=== PATIENT | female | born 1970 | race Caucasian/White ===

== ENCOUNTER 2018-09-16 16:30 | Outpatient (CLI) | payer OTHER, SELFPAY ==
--- NOTE | 2018-09-16 14:40 | DI.RAD_ITS ---
SYMPTOM/DIAGNOSIS: HIP PAIN, HEARD A POP, M25.559 RIGHT HIP AND PELVIS: The hip joint spaces are well maintained. There is no significant acetabular spurring. The femoral heads and acetabula are normally formed. The SI joints and pubic symphysis are unremarkable. Stones are noted at the lower pole of the left kidney which is partially included on the exam. IMPRESSION: Negative pelvis and right hip.
== END 2018-09-16 16:50 ==
PROVIDERS: PCP Family Medicine; Visit Provider Family Medicine
DX: M25.551 Pain in right hip (principal)
CPT/HCPCS: 73502

== ENCOUNTER 2019-06-05 01:51 | Outpatient (CLI) | payer OTHER, SELFPAY ==
[2019-06-05 12:40] LABS: C-Reactive Protein 0.17 mg/dL (0.0-0.3); TSH (W/Ref FT4) 2.27 uIU/mL (0.36-3.74)
[2019-06-05 13:43] LABS: ESR 10 mm/hr (0-20)
[2019-06-06 09:21] LABS: Cyclic Citrullinated Peptide <2.5 U/mL (<5.0)
[2019-06-06 11:01] LABS: Rheumatoid Factor 9 IU/mL (<12.5)
[2019-06-06 14:09] LABS: ANA Interpretation Positive (NEGAT); ANA Titer Pattern SEE COMMENTS
[2019-06-11 14:34] LABS: HLA-B27 Result Positive
== END 2019-06-05 02:11 ==
PROVIDERS: PCP Family Medicine; Visit Provider Family Medicine
DX: L40.9 Psoriasis, unspecified (principal); M25.50 Pain in unspecified joint; R53.83 Other fatigue
CPT/HCPCS: 36415; 85652; 86200; 86812; 84443; 86038; 86140; 86431

== ENCOUNTER 2019-11-24 12:17 | Outpatient (CLI) | payer OTHER, SELFPAY ==
--- NOTE | 2019-11-24 13:00 | DI.RAD_ITS ---
EXAM: XR SHOULDER RT COMPLETE 2+V CLINICAL HISTORY: RIGHT SHOULDER PAIN, M25.519. TECHNIQUE: 2D digital imaging was performed. COMPARISON: No exams were available for comparison FINDINGS: BONES: No acute fracture is present. No bony destructive lesion is seen. JOINTS: No dislocation present. SOFT TISSUE: Normal. IMPRESSION: No acute abnormality. DATA REPOSITORY: RADIATION DOSE DELIVERED:
== END 2019-11-24 12:37 ==
PROVIDERS: PCP Family Medicine; Visit Provider Family Medicine
DX: M25.511 Pain in right shoulder (principal)
CPT/HCPCS: 73030

== ENCOUNTER 2019-12-12 03:11 | Outpatient (CLI) | payer OTHER, SELFPAY ==
--- NOTE | 2019-12-12 07:45 | DI.MRI_ITS ---
EXAM: MR UPPER JOINT RT WO CLINICAL HISTORY: STABILITY, ROTATOR CUFF TEAR, FAILED CONSERVATIVE TREATMENT, M75.100, M25.319. TECHNIQUE: Multiplanar multisequence MRI was performed. COMPARISON: None. FINDINGS: BONES: There is no fracture or contusion pattern. JOINTS: There are mild degenerative changes in the acromioclavicular joint. The glenohumeral joint i s normal. Mild degenerative signal changes are also noted in the greater tuberosity. TENDONS: Supraspinatus: There is a full-thickness tear of the supraspinatus tendon anteriorly. There is thick ening and intermediate signal within the tendon consistent with tendinosis. Infraspinatus: There is tendinosis of the infraspinatus tendon. Subscapularis: Thickening and intermediate signal seen within the subscapularis tendon consistent wit h tendinosis. Teres Minor: Unremarkable. Biceps and [place]: Unremarkable. MUSCLES: Unremarkable. GLENOID LABRUM: Unremarkable on this noncontrast examination. SOFT TISSUES: Unremarkable. LIGAMENTS: Unremarkable. OTHER: There is fluid seen in the subacromial-subdeltoid bursa. There is fluid seen in the subcoraco id bursa. IMPRESSION: 1. There is a full-thickness tear of the supraspinatus tendon at its insertion onto the greater tuber osity. 2. Tendinosis of the infraspinatus and subscapularis tendons. 3. Fluid in the subacromial-subdeltoid and subcoracoid bursa. 4. Degenerative changes seen in the shoulder. DATA REPOSITORY:
== END 2019-12-12 03:31 ==
PROVIDERS: PCP Family Medicine; Visit Provider Family Medicine
DX: M25.511 Pain in right shoulder (principal); M25.311 Other instability, right shoulder; M75.101 Unspecified rotator cuff tear or rupture of right shoulder, not specified as traumatic; M19.011 Primary osteoarthritis, right shoulder; M75.51 Bursitis of right shoulder
CPT/HCPCS: 73221

== ENCOUNTER 2020-02-09 08:39 | Outpatient (CLI) | payer OTHER, SELFPAY ==
[2020-02-10 13:05] LABS: COVID-19 RT-PCR UVMMC Result Negative (Negative)
== END 2020-02-09 08:59 ==
PROVIDERS: PCP Family Medicine; Visit Provider Student in an Organized Health Care Education/Training Program
DX: Z11.59 Encounter for screening for other viral diseases (principal)
CPT/HCPCS: U0003

== ENCOUNTER 2020-02-12 06:02 | Day surgery (SDC) | payer OTHER, SELFPAY ==
[2020-02-12] VITALS (9 sets, daily range): BP systolic 92–139; BP diastolic 44–89; PULSE 75–91; RESP 16–20; TEMP 36.3–36.5; O2SAT 95–99
[2020-02-12] MEDS: Lactated Ringers 1,000 ML 100 ML IV (06:44)
--- NOTE | 2020-02-12 07:37 | ROE_ITS ---
Date of service: 02/12/20 Time of Service: 11:55 Operative Note Operative Note DATE OF PROCEDURE: 02/12/20 PRE-OP DIAGNOSIS: Right: 1. Rotator cuff tear 2. LHB tendinopathy 3. Bursitis 4. Impingement 5. Adhesive capsulitis POST-OP DIAGNOSIS: same PROCEDURE: Right: 1. Rotator cuff repair, CPT# 58689. This involved repair of the subscapularis and supraspinatus using anchors and sutures to reattach the rotator cuff back to the footprint of the lesser and greater tuberosity. 2. Open biceps tenodesis, CPT# 25910. This involved reattaching the long head of the biceps tendon to the proximal humerus in the sub-pectoral area of the bicipital groove at the correct tension. 3. Extensive debridement, CPT# 83375. This involved using arthroscopic hand instruments, power instruments, and radiofrequency instruments to perform to release the long head of the biceps tendon from the superior labrum and debrided areas of labral tearing, synovitis, and thickening of the MGHL within the leta ohumeral joint anteriorly and posteriorly as well as debride partial articular sided infraspinatus rotator cuff tear superiorly. 4. Subacromial decompression with partial acromioplasty, CPT# 77057. This involved using arthroscopic power instruments and a radiofrequency wand to complete a bursectomy and remove bone spurs on the undersurface of the acromion. 5. Manipulation under anesthesia, CPT# 68070. This involved gentle steady pressure using the arm as a fulcrum while stabilizing the scapula to restore loss of forward flexion and improve motion from 135 degrees to past 155 degrees after induction of anesthesia and prior to the arthroscopy. The assistant superintendent for curriculum was medically required in order to help assist in techniques above, which require positioning the arm, holding the arthroscope, and m anipulating 2 to 4 instruments and sutures at the same time. This cannot be done without the help of an experienced assistant superintendent for curriculum. SURGEON: Kike Bianchi CERTIFIED DRUG COUNSELOR: Cintia Uribe ANESTHESIA: GETA and regional ESTIMATED BLOOD LOSS: 15 PATHOLOGY: none sent COMPLICATIONS: None Patient was transported to: PACU Patient's condition: stable Implants: Arthrex: 4.75mm SwiveLocks x 6 and Unicortical Proximal Biceps Tenodesis Button Indications: The patient was diagnosed with the above conditions and appropriately indicated for surgical intervention. Please see complete medical record for details. Findings: Exam under anesthesia: Supine forward flexion with scapula stabilized limited to 135 degrees. Gentle manipulation with gradual release easily able to restore full forward flexion symmetrical with the other side to 155 degrees. Full, symmetrical FF, internal rotation, and external rotation after this manipulation. Glenohumeral joint: Extensive, impressive synovitis anteriorly and superiorly about a anterior and superior labral tear and fraying. Thickened MGHL. Moderate partial upper border subscapularis tear with adjacent chondromalacia. Significant long head of the biceps injection inflammation. Anterior supraspinatus full-thickness rotator cuff tear with partial-thickness component in the posterior aspect and only a mild less than 10% articular partial tear of the infraspinatus. Thickened and inflamed inferior capsule with slight loss of axillary pouch volume. Subacromial space: Moderate bursitis. Moderate under surface acromial bone spur. Moderately sized full-thickness anterior supraspinatus tear. Procedure Description: The patient was taken to the operating room and transferred to the operating room table. General anesthesia was induced. While under anesthesia, bilateral shoulders were examined. The patient was found to have a significant loss of forward flexion while supine with the scapula stabilized that was corrected with a gentle manipulation under anesthesia restoring full range of motion symmetrically as detailed above. The patient was positioned in the beachchair position. All bony prominences were well-padded. Preoperative antibiotics were administered. The shoulder was prepped and draped in the usual sterile fashion. The correct patient, procedure, and side of the procedure were all verified prior to incision. Starting through the posterior portal a standard complete diagnostic arthroscopy was performed of the glenohumeral joint including inspection of the long head of the biceps, anterior and superior labrum, subscapularis tendon, supraspinatus and infraspinatus tendons, and axillary recess. The glenoid and humeral head cartilage as well as the posterior labrum were inspected from an anterior viewing portal. Significant findings and interventions noted above. The biceps tendon was released from the labrum using arthroscopic scissors. The subscapularis was torn off of the lesser tuberosity. The lesser tuberosity footprint was prepared using hand and power instruments for tendon healing. A rigid cannula was inserted anteriorly. The arm was positioned in neutral. Using a 1 portal technique, a suture lasso was used to pass a suture tape fiber link through the lateral and superior subscapularis. This stitch was used for traction and passing of a fiber tape more medially and centrally in the subscapularis tendon body. The tap was used to localize placement of the anchor. Both sutures were passed through the anchor eyelet and the anchor was brought down to the bone with the sutures tensioned appropriately. The arm was brought through full external rotation demonstrating no restricted motion due to the repair and secure fixation of the tendon and anchor down to bone. 10 cc of 0.5% bupivacaine with epinephrine was infiltrated about a 2 to 3 cm longitudinal incision at the inferior margin of the pectoralis major localized over the long head of the biceps tendon. Blunt and sharp dissection were used to expose the tendon in the bicipital groove. The tendon was brought out of the wound and kept off the skin on top of a blue towel. The correct location for sub-pectoral fixation was localized, prepped with a rasp, and then drilled with a 3.2 mm drill pin in a unicortical fashion. Using a fiber loop suture the tendon was prepped from the musculotendinous junction a few centimeters proximal. The excess tendon was amputated. The free suture ends were then passed through the unicortical button implant. The drill pin was removed and the implant was placed into the humeral intramedullary canal. The button was flipped and the sutures were tensioned bringing the tendon down to bone. Tension and fixation were then tested and found to be appropriate. A free needle was used to pass suture through the tendon and the free ends of the suture were were tied compressing tendon to the humerus. The wound was copiously irrigated with normal saline. Subcutaneous tissue was closed using 3- 0 Monocryl in a buried interrupted fashion. Skin was closed using 3-0 Monocryl in a buried subcuticular running fashion. Skin glue was applied over the incision. Mastisol was applied about the incision. The incision was covered with Telfa, gauze, and covered with a Tegaderm dressing. Starting through the posterior portal, the arthroscope was directed into the subacromial space. A lateral 50 yard line lateral portal was created. A combination of power instruments and a radiofrequency ablator were used to debride bursitis anteriorly, posteriorly, and laterally as well as expose and smooth bone spurring on the undersurface of the acromion. The coracoacromial ligament was partially released. The bursectomy was completed viewing laterally and working from posteriorly and the rotator cuff was thoroughly inspected with findings noted above. Cannulas were inserted at the superior anterior lateral and superior posterior lateral margins of the acromion as well as at the lateral 50 yard line portal. The rotator cuff tear was inspected and debrided of frayed tissue at the margins exposing a full-thickness moderately sized anteriorly based supraspinatus tear. The greater was tuberosity cleared of fibrous tissue at the articular margin of the footprint and the bursectomy was extended laterally. A punch was used to localize placement the first medial row anchor starting anteriorly that was loaded with fiber tape. A suture passer was as well as a tissue grasper was used to pass both ends of this fiber tape through all layers of the tendon at the appropriate level medially. This process was repeated for the second posterior medial row anchor. Next, a self retrieving suture passer was used to pass fiber link sutures in cinch mode anterior to the first medial row anchor, between the anchors, and posterior to the second medial row anchor. The rotator cuff tear was provisionally reduced through these fiber link sutures and secured to a centrally placed middle row suture anchor. Lastly, a fiber tape from the anterior and posterior anchors was brought to a lateral row anterior anchor and this process repeated for the lateral row posterior anchor achieving compression over the reduced rotator cuff repair. The repair was inspected through shoulder range of motion and found to be stable with secure fixation. The shoulder was drained of arthroscopic fluid. All portal sites were copiously irrigated. These incisions were closed using 3-0 Monocryl in a buried fashion, covered with Mastisol, Steri-Strips, Xeroform, dry gauze, and ABDs. The dressings were covered and secured with Medipore tape. The operative extremity was placed into a sling for immobilization. The patient awoke from anesthesia without complication and was transferred to the recovery room in a stable condition.
[2020-02-12] MEDS: ceFAZolin 2 GM/50 ML BAG IVPB (07:50)
[2020-02-12] MEDS: EPINEPHrine 30 MG/30 ML VIAL (11:32)
--- NOTE | 2020-02-12 11:55 | W.PM.DSUDISC ---
Discharge Plan Disposition Patient Disposition: HOME Condition: Stable Discharge Details Reason For Visit: Right shoulder surgery Attending Provider: Kike Bianchi Primary Care Provider: Evelyn Caldera Home Meds and New Rx's Prescriptions: New naproxen 250 mg tablet 250 - 500 mg PO BID PRN (Reason: Moderate pain or swelling) Qty: 60 RF: 0 aspirin 81 mg tablet,delayed release (DR/EC) 81 mg PO DAILY 14 Days Qty: 14 RF: 0 oxycodone 5 mg tablet 5 - 10 mg PO Q4H PRN (Reason: moderate to severe pain) Qty: 22 RF: 0 Continued calcium carbonate-vitamin D3 [Caltrate with Vitamin D3] 1 EACH tablet 2 tab PO DAILY RF: 0 fluocinolone 60 ML solution 10 - 15 ml Topical DAILY PRNQty: 6 RF: 12 cholecalciferol (vitamin D3) [Vitamin D3] 2,000 UNIT capsule 2,000 unit PO DAILY RF: 0 hydrocortisone [Proctozone-HC] 30 GM cream with perineal applicator 5 gm Topical BID PRNQty: 30 RF: 12 clindamycin phosphate 60 ML solution 10 - 20 ml Topical BID PRNQty: 3 RF: 12 albuterol sulfate [ProAir HFA] 90 mcg/actuation HFA aerosol inhaler 1 - 2 puff Inhalation Q4H PRN Qty: 3 RF: 4 [place] 0.02 % cream 1 applic Topical HS Qty: 40 RF: 4 betamethasone valerate 0.12 % foam 1 applic TP DAILY PRN (Reason: skin irritation) Qty: 100 RF: 3 fluconazole 150 mg tablet 150 mg PO Q3D Qty: 14 RF: 1 ketoconazole [Nizoral] 2 % shampoo 1 applic Topical 2x/week Qty: 3 RF: 4 spironolactone 25 mg tablet 50 mg PO DAILY Qty: 180 RF: 4 venlafaxine [Effexor XR] 75 mg capsule,extended release 24hr 75 mg PO .q48 h Qty: 90 RF: 4 nabumetone 750 mg tablet 750 mg PO BID Qty: 180 RF: 4 clonazepam 1 mg tablet 1 mg PO QHS Qty: 90 RF: 1 Discharge Instructions Additional Instructions: Surgery: Shoulder arthroscopy with rotator cuff repair and biceps tenodesis Activity: You should keep your arm at your side in a neutral position at all times except for physical therapy. Do not try to lift or raise your arm using your own muscles. You should use the sling whenever you are out of the house. You may have to adjust the abduction pillow or remove it for comfort. At home it is best to remove the sling and rest the arm on a pillow at your side or support the operative side with your other hand. You may allow the arm to dangle at your side. A physical therapy prescription will be provided separately today. Prescriptions: Aspirin 81 mg take 1 daily to prevent a blood clot for 2 weeks Naproxen 250 mg take 1-2 every 12 hours with a meal as needed for moderate pain Oxycodone 5 mg take 1-2 every 4-6 hours as needed for severe pain You may use [id number] Tylenol (acetaminophen) as needed for mild pain. These pain medications may be taken all at once or in different combinations as needed. Also, recommend Colace (docusate) as a stool softener as surgery and pain medicine cause constipation. Dressings: Leave dressing in place for 2-3 days. May then remove and leave open to air or cover incisions with Band-Aids. May shower after 5 days. Follow-up: 10-[address] Bianchi Please call the office during business hours with any questions or concerns. Let us know right away if you develop any redness, drainage, fevers, chest pain, or trouble breathing. Do not drink alcohol or drive for at least 24 hours after anesthesia. Referrals: Kike Bianchi MD [ [facility] STAFF PHYSICIAN] - Discharge Orders Discharge Orders: Discharge Order (Routine); Ordered 02/12/20 Ordered By: Kike Bianchi DS: Diagnosis Discharge Diagnosis (1) Tendonitis of long head of biceps brachii of right shoulder: Status: Acute (2) Impingement syndrome of right shoulder: Status: Acute (3) Bursitis of right shoulder: Status: Acute (4) Rotator cuff tear, right: Status: Acute
== END 2020-02-12 16:23 | disposition home or self-care (01) ==
PROVIDERS: PCP Family Medicine; Visit Provider Student in an Organized Health Care Education/Training Program
PROC: (CPT 29827; principal; 2020-02-12 07:30)
PROC: (CPT 23430; 2020-02-12 07:30)
DX: M75.121 Complete rotator cuff tear or rupture of right shoulder, not specified as traumatic (principal); M75.21 Bicipital tendinitis, right shoulder; M75.41 Impingement syndrome of right shoulder; M75.51 Bursitis of right shoulder; M24.151 Other articular cartilage disorders, right hip; M65.811 Other synovitis and tenosynovitis, right shoulder; M94.211 Chondromalacia, right shoulder; G89.18 Other acute postprocedural pain
CPT/HCPCS: 29827; 23430; 29823; 29826; 23700; C1713; 76942; 81025; L3670; J0690; J1100; J1885; J2001; J2370; J2405; J2704

== ENCOUNTER 2020-03-29 15:57 | Outpatient (REF) | payer OTHER, SELFPAY ==
--- NOTE | 2020-03-29 15:45 | PAPFT_PTH ---
PATIENT: Meghan Lockhart LOC: [facility] U#:[id number] AGE/SX: 50/F ROOM: RE03/29/[address]: SOFI Crump : 1970 BED: DIS: 03/29/2020 SPEC #: [id number] RECD: 03/29/20 17:01 STATUS: JENNY REEtienne #: [id number] JOSELYN: 03/29/20 15:[address]: Diana Paniagua DEPT: [facility] Cytology RECD BY: Evie Santos ENTERED: 03/29/20 17:01 SP TYPE: PAPFT OTHR DR: Evelyn Caldera MD, DC Tissues: 1 - CX/ENDOCX FOR PAP SMEARS Procedures: PAP THIN PREP/UVM Screening HPV DNA PROBE Comments: [id number]
== END 2020-03-29 16:17 ==
LOC: LBN 15:57
PROVIDERS: PCP Family Medicine; Visit Provider Nurse Practitioner Family
DX: Z12.4 Encounter for screening for malignant neoplasm of cervix (principal); Z11.51 Encounter for screening for human papillomavirus (HPV)
CPT/HCPCS: 88142; 87624

== ENCOUNTER 2020-04-01 01:26 | Outpatient (CLI) | payer OTHER, SELFPAY ==
--- NOTE | 2020-04-01 06:30 | DI.US_ITS ---
EXAM: US PELVIS TRANSVAGINAL CLINICAL HISTORY: short menstrual cycles,n92.0,excessive freq. menstruation TECHNIQUE: Ultrasound performed using standard protocol. COMPARISON: US US OR ANESTHESIA from 02/12/2020 FINDINGS: Pelvic ultrasound was performed transabdominally and transvaginally. Please see the accompanying fatou a sheet for measurements of pelvic structures. Note is made of 2 probable calculi of the lower pole of the left kidney, nonobstructing. Right kidney grossly unremarkable. The uterus is unremarkable in appearance with an 8 millimeter thick homogeneous endometrial stripe. There are a couple of visible follicles of left ovary and there is a 13 millimeter in diameter hypoec hoic avascular rounded mass probably representing hemorrhagic cyst. Other etiologies including solid neoplastic lesion not excluded, follow-up pelvic ultrasound suggested in 4-6 weeks to re-evaluate th is finding. Right ovary is unremarkable in appearance. No free fluid in the cul-de-sac. IMPRESSION: Indeterminate hypoechoic left ovarian mass, possible hemorrhagic cyst, of follow-up ultrasound recomm ended in 4-6 weeks to exclude neoplasm. Incidental nonobstructing left lower pole renal calculi noted. DATA REPOSITORY:
== END 2020-04-01 01:46 ==
PROVIDERS: PCP Family Medicine; Visit Provider Nurse Practitioner Family
DX: N92.0 Excessive and frequent menstruation with regular cycle (principal); N20.0 Calculus of kidney; N83.292 Other ovarian cyst, left side
CPT/HCPCS: 76830; 76856

== ENCOUNTER 2020-04-07 08:50 | Outpatient (REF) | payer OTHER, SELFPAY ==
--- NOTE | 2020-04-07 08:30 | ENDOMET_PTH ---
PATIENT: Meghan Lockhart LOC: [facility] U#:[id number] AGE/SX: 50/F ROOM: RE04/07/[address]: Delio Ta MD : 1970 BED: DIS: 04/07/2020 SPEC #: [id number] RECD: 04/07/20 12:43 STATUS: JENNY REQ #: [id number] JOSELYN: 04/07/20 08:[address]: Delio Ta DEPT: Surgical Specimen RECD BY: Evie Santos ENTERED: 04/07/20 12:43 SP TYPE: Endomet OTHR DR: Evelyn Caldera MD, DC Tissues: 1 - ENDOMETRIUM BX/CURRETTE Procedures: GROSS AND MICRO LEVEL 4 Comments: [id number]
== END 2020-04-07 09:10 ==
LOC: LBN 08:50
PROVIDERS: PCP Family Medicine; Visit Provider Obstetrics & Gynecology
DX: N93.8 Other specified abnormal uterine and vaginal bleeding (principal)
CPT/HCPCS: 88305

== ENCOUNTER 2020-04-08 01:38 | Outpatient (CLI) | payer OTHER, SELFPAY ==
[2020-04-08 13:15] LABS: Absolute Basophil Count 0.03 k/cumm (0.0-0.2); Absolute Eosinophil Count 0.59 k/cumm (0.0-0.7); Absolute Lymphocyte Count 1.69 k/cumm (1.2-3.4); Absolute Monocyte Count 0.49 k/cumm (0.11-0.7); Absolute Neutrophil Count 2.95 k/cumm (1.2-6.7); Basophils % 0.5; Eosinophils % 10.3; HCT 38.7 % (36.0-46.0); Lymphocytes % 29.4; Mean Corp. HGB Concentration 33.6 g/dL (32.0-36.0); Mean Corpuscular Hemoglobin 29.7 pg (27.0-33.0); Mean Corpuscular Volume 88.4 fL (80-95); Mean Platelet Volume 10.4 fL (8.0-11.0); Monocytes % 8.5; Neutrophils % 51.3; Platelet Count 295 x1000/uL (130-400); RBC 4.38 m/cumm (4.00-5.20); RBC Distribution Width 12.5 % (11.7-14.6); White Blood Cell Count 5.75 k/cumm (4.4-10.8)
== END 2020-04-08 01:58 ==
PROVIDERS: PCP Family Medicine; Visit Provider Obstetrics & Gynecology
DX: N93.9 Abnormal uterine and vaginal bleeding, unspecified (principal); Z01.818 Encounter for other preprocedural examination
CPT/HCPCS: 36415; 86850; 86900; 86901; 85025

== ENCOUNTER 2020-04-10 07:21 | Outpatient (CLI) | payer OTHER, SELFPAY ==
[2020-04-13 23:45] LABS: COVID-19 RT-PCR UVMMC Result Negative (Negative)
== END 2020-04-10 07:41 ==
PROVIDERS: PCP Family Medicine; Visit Provider Obstetrics & Gynecology
DX: Z01.818 Encounter for other preprocedural examination (principal)
CPT/HCPCS: U0003

== ENCOUNTER 2020-04-14 06:14 | Day surgery (SDC) | payer OTHER, SELFPAY ==
[2020-04-14] VITALS (12 sets, daily range): BP systolic 94–134; BP diastolic 59–90; PULSE 68–97; RESP 14–19; TEMP 36–36.6; O2SAT 96–100
[2020-04-14] MEDS: Lactated Ringers 1,000 ML 125 ML IV (07:00)
[2020-04-14] MEDS: Lidocaine 2% Jelly 6 ML SYR (07:50)
[2020-04-14] MEDS: Lidocaine 1% Multi-Dose 50 ML VIAL (08:00)
--- NOTE | 2020-04-14 08:00 | ENDOMET_PTH ---
PATIENT: Meghan Lockhart LOC: [facility] U#:[id number] AGE/SX: 50/F ROOM: RE04/14/[address]: Delio Ta MD : 1970 BED: DIS: 04/14/2020 SPEC #: [id number] RECD: 04/14/20 12:36 STATUS: JENNY REQ #: [id number] JOSELYN: 04/14/20 08:[address]: Delio Ta DEPT: Surgical Specimen RECD BY: Evie Santos ENTERED: 04/14/20 12:38 SP TYPE: Endomet OTHR DR: Evelyn Caldera MD, DC Tissues: 1 - ENDOMETRIUM BX/FATOU Procedures: GROSS AND MICRO LEVEL 4 Comments: [id number]
[2020-04-14] MEDS: fentaNYL 100 MCG/2 ML VIAL IVP (09:00)
[2020-04-14] MEDS: HYDROcodone 5/Acetaminophen 325 TAB PO (09:42)
--- NOTE | 2020-04-14 10:10 | W.PM.DSUDISC ---
Discharge Plan Disposition Patient Disposition: HOME Condition: Good Discharge Details Attending Provider: Delio Ta Primary Care Provider: Evelyn Caldera Home Meds and New Rx's Prescriptions: New hydrocodone-acetaminophen 5-325 mg Tablet 1 tab PO Q4H PRN Qty: 20 RF: 0 Continued bupropion HCl [Wellbutrin XL] 300 mg tablet extended release 24 hr 300 mg PO QPM RF: 0 calcium carbonate-vitamin D3 [Caltrate with Vitamin D3] 1 EACH tablet 2 tab PO DAILY RF: 0 fluocinolone 60 ML solution 10 - 15 ml Topical DAILY PRNQty: 6 RF: 12 cholecalciferol (vitamin D3) [Vitamin D3] 2,000 UNIT capsule 2,000 unit PO DAILY RF: 0 hydrocortisone [Proctozone-HC] 30 GM cream with perineal applicator 5 gm Topical BID PRNQty: 30 RF: 12 clindamycin phosphate 60 ML solution 10 - 20 ml Topical BID PRNQty: 3 RF: 12 albuterol sulfate [ProAir HFA] 90 mcg/actuation HFA aerosol inhaler 1 - 2 puff Inhalation Q4H PRN Qty: 3 RF: 4 [place] 0.02 % cream 1 applic Topical HS Qty: 40 RF: 4 betamethasone valerate 0.12 % foam 1 applic TP DAILY PRN (Reason: skin irritation) Qty: 100 RF: 3 fluconazole 150 mg tablet 150 mg PO Q3D Qty: 14 RF: 1 ketoconazole [Nizoral] 2 % shampoo 1 applic Topical 2x/week Qty: 3 RF: 4 spironolactone 25 mg tablet 50 mg PO DAILY Qty: 180 RF: 4 clonazepam 1 mg tablet 1 mg PO QHS Qty: 90 RF: 1 gabapentin 300 mg capsule 300 mg PO TID Qty: 90 RF: 5 tramadol 50 mg tablet 50 mg PO BID PRN (Reason: pain, moderate) Qty: 30 RF: 0 celecoxib 200 mg capsule 200 mg PO BID RF: 0 ibuprofen 800 mg tablet 800 mg PO TID RF: 0 Discharge Instructions Stand Alone Forms: [facility] Post Gynecology Surgery, Karan Villagran (DSU) DS: Diagnosis Discharge Diagnosis (1) Abnormal uterine bleeding: Status: Acute
[2020-04-14] MEDS: Ondansetron O.D.T. 4 MG TABEF 8 MG PO (11:50)
--- NOTE | 2020-05-04 13:28 | W.PM.OP ---
Date of service: 04/14/20 Time of Service: 10:00 Operative Note Operative Note DATE OF PROCEDURE: 04/14/20 PRE-OP DIAGNOSIS: Abnormal uterine bleeding POST-OP DIAGNOSIS: same PROCEDURE: Hysteroscopy, D&C, Novasure Endometrial ablation SURGEON: Delio Ta ANESTHESIA: MAC and local ESTIMATED BLOOD LOSS: 10 PATHOLOGY: other (Endometrial curettings) COMPLICATIONS: None Patient was transported to: PACU Patient's condition: stable Findings: 1. Normal hysteroscopic exam Procedure Description: Patient was taken to the operating room and after adequate sedation was achieved the patient was placed in lithotomy position. The patient was prepped and draped in usual sterile manner. A weighted speculum was placed in the vagina with good visualization of the cervix. A paracervical block with 10 cc of 1% plain lidocaine solution was instilled. The cervix was gently dilated with Bolden dilators. A single-tooth tenaculum was placed on the anterior lip of the cervix. The 5 mm 30 degree hysteroscope with normal saline distention media was advanced through the cervix. There were no abnormalities noted within the endometrial cavity. The endometrium appeared thin. The hysteroscope was removed. A sharp curettage was performed and this was submitted to pathology. The endometrial cavity was measured to 6 cm. Cavity width measured to 3.2 cm. The NovaSure device had been inserted. Cavity test was passed. The device was activated and cycle completed uneventfully. All instrumentation was removed. The procedure was tolerated well. The patient was transferred to PACU stable condition.
== END 2020-04-14 12:50 | disposition home or self-care (01) ==
PROVIDERS: PCP Family Medicine; Visit Provider Obstetrics & Gynecology
PROC: 0UDB8ZZ Extraction of Endometrium, Via Natural or Artificial Opening Endoscopic (ICD-10-PCS; CPT 58558; principal; 2020-04-14 07:30)
PROC: (CPT 58353; 2020-04-14 07:30)
DX: N93.9 Abnormal uterine and vaginal bleeding, unspecified (principal)
CPT/HCPCS: 58563; 88305; J1100; J1885; J2250; J2405; J2704; J3010

== ENCOUNTER 2020-07-13 15:56 | Outpatient (REF) | payer OTHER, SELFPAY ==
[2020-07-13 21:49] LABS: Bilirubin Negative (Negative); Blood Large (Negative); Clarity Sl Cloudy (Clear); Glucose Negative (Negative); Ketones Negative (Negative); Leukocyte Esterase Small (Negative); Nitrite Negative (Negative); Specific Gravity 1.015 (1.005-1.025); Urobilinogen 0.2 EU/dL (Up TO 0.2)
[2020-07-13 22:37] LABS: Bacteria Negative HPF (Negative); C & S Indicated? Yes; Casts Negative LPF (Negative); Crystals Negative HPF (Negative); Epithelial Cells Few HPF (Negative); Mucus Negative (Negative); Other Cells Negative (Negative); RBC >50 HPF (0-2)
== END 2020-07-13 16:16 ==
LOC: LBN 15:56
PROVIDERS: PCP Family Medicine; Visit Provider Family Medicine
DX: R31.9 Hematuria, unspecified (principal)
CPT/HCPCS: 81003; 81015; 87086

== ENCOUNTER 2020-08-19 15:47 | Outpatient (REF) | payer OTHER, SELFPAY ==
[2020-08-19 16:53] LABS: Bilirubin Negative (Negative); Blood Small (Negative); Clarity Clear (Clear); Glucose Negative (Negative); Ketones Negative (Negative); Leukocyte Esterase Trace (Negative); Nitrite Negative (Negative); Urobilinogen 0.2 EU/dL (Up TO 0.2)
[2020-08-19 17:17] LABS: Bacteria Moderate HPF (Negative); Casts Negative LPF (Negative); Crystals Negative HPF (Negative); Epithelial Cells Few HPF (Negative); Mucus Negative (Negative)
[2020-08-19 17:18] LABS: C & S Indicated? Yes
== END 2020-08-19 16:07 ==
LOC: LBN 15:47
PROVIDERS: PCP Family Medicine; Visit Provider Family Medicine
DX: R39.89 Other symptoms and signs involving the genitourinary system (principal)
CPT/HCPCS: 81003; 81015; 87086

== ENCOUNTER 2020-08-26 02:59 | Outpatient (CLI) | payer OTHER, SELFPAY ==
--- NOTE | 2020-08-26 06:45 | DI.US_ITS ---
EXAM: US PELVIS TRANSVAGINAL CLINICAL HISTORY: abnormal us/new bladder hypersentivity,R93.89 TECHNIQUE: Ultrasound performed using standard protocol. COMPARISON: US US PELVIS TRANSVAGINAL from 04/01/2020 FINDINGS: Pelvic ultrasound was performed transabdominally and transvaginally. Patient reportedly has a histor y of prior endometrial ablation. Uterus measures 66 x 34 x 45 millimeters. Endometrial stripe is about 12 millimeters in thickness. There is fluid in the endometrial cavity. There is a nodular 3 millimeter solid focus consistent wit h a polyp in the endometrial cavity as well. The ovaries have normal follicular appearance. Largest follicle/cyst is 14 millimeters in the left o vary. Right ovary measures 21 x 12 x 2 10 millimeters. Left ovary measures 20 x 12 x 13 millimeters. No free fluid in the cul-de-sac. Limited scanning of the kidneys shows multiple echogenic foci in the left kidney consistent with nono bstructing calculi. IMPRESSION: Fluid in endometrial cavity, nonspecific. Please correlate with menstrual status. Probable 3 millim eter endometrial polyp, clot not excluded. DATA REPOSITORY:
== END 2020-08-26 03:19 ==
PROVIDERS: PCP Family Medicine; Visit Provider Family Medicine
DX: R93.89 Abnormal findings on diagnostic imaging of other specified body structures (principal)
CPT/HCPCS: 76830; 76856

== ENCOUNTER 2020-09-09 01:26 | Outpatient (CLI) | payer OTHER, SELFPAY ==
[2020-09-09 12:44] LABS: HCT 34.1 % (36.0-46.0); HGB 11.3 g/dL (11.2-15.7); MCH 29.7 pg (27.0-33.0); MCHC 33.1 % (32.0-36.0); MCV 89.7 fL (80-95); MPV 9.8 fL (8.0-11.0); Platelet Count 274 10^3/uL (130-400); RDW 11.9 % (11.7-14.6); RDW-SD 38.8 fL; WBC 5.87 10^3/uL (4.4-10.8)
[2020-09-10 22:43] LABS: COVID-19 RT-PCR UVMMC Result Negative (Negative)
== END 2020-09-09 01:46 ==
PROVIDERS: PCP Family Medicine; Visit Provider Obstetrics & Gynecology
DX: Z01.818 Encounter for other preprocedural examination (principal); Z11.59 Encounter for screening for other viral diseases
CPT/HCPCS: 36415; 85027; 86850; 86900; 86901; U0003

== ENCOUNTER 2020-09-15 07:13 | Day surgery (SDC) | payer OTHER, SELFPAY ==
[2020-09-15 07:24] VITALS: BP 110/72; PULSE 87; RESP 16; TEMP 36.8; O2SAT 98
[2020-09-15] MEDS: Lactated Ringers 1,000 ML 125 ML IV (08:23)
--- NOTE | 2020-09-15 10:42 | ENDO_PTH ---
PATIENT: Meghan Lockhart LOC: [facility] U#:[id number] AGE/SX: 50/F ROOM: RE09/15/[address]: Bee Mendenhall DO : 1970 BED: DIS: 09/15/2020 SPEC #: [id number] RECD: 09/15/20 12:18 STATUS: JENNY REQ #: [id number] JOSELYN: 09/15/20 10:[address]: Bee Mendenhall DEPT: Surgical Specimen RECD BY: Evie Santos ENTERED: 09/15/20 12:19 SP TYPE: Endo OTHR DR: Evelyn Caldera MD, DC Tissues: 1 - ENDOCERVICAL BX/CURRETTE 2 - ENDOMETRIUM BX/CURRETTE Procedures: GROSS AND MICRO LEVEL 4 Comments: [id number]
--- NOTE | 2020-09-15 10:49 | W.PM.OP ---
Date of service: 09/15/20 Time of Service: 10:49 Operative Note Operative Note DATE OF PROCEDURE: 09/15/20 PRE-OP DIAGNOSIS: Bulky fibroid uterus and endometrial fluid collection POST-OP DIAGNOSIS: same PROCEDURE: Hysteroscopy with dilation and curettage SURGEON: Bee Mendenhall ANESTHESIA: MAC ESTIMATED BLOOD LOSS: 5 PATHOLOGY: other (1. Endocervical curetting 2. Endometrial curettings) COMPLICATIONS: None Patient was transported to: PACU Patient's condition: stable Indications: Bulky fibroid uterus with endometrial fluid collection Findings: Thickened endometrium with copious endometrial curettings, 12-week sized mobile uterus with good uterine descent Procedure Description: Patient is a 50-year-old female with known fibroid uterus. Preoperative evaluation including endometrial evaluation via ultrasound which showed a fluid collection. In light of this fluid collection, decision was made for endometrial sampling in the operating room with hysteroscopy dilation and curettage. Risks benefits and alternatives procedure were explained to the patient in full informed consent was obtained. She was taken the operating suite with an IV running where she is placed in the dorsal supine position and general anesthesia administered with ease. She was then placed in the modified dorsal lithotomy position and prepped and draped in usual sterile fashion. Bladder was found to be empty. Exam under anesthesia revealed a mobile bulky approximately 12-week size uterus with good uterine descent. At this point speculum was placed into the posterior vaginal vault and single-tooth tenaculum used to grasp the anterior lip of the cervix. Cervical os dilated the point that a 5 mm hysteroscope could be passed with ease. On inspection of the endometrial cavity the entire lining of the cavity appeared shaggy and thickened and somewhat irregular due to overlying fibroids. At this point endocervical curetting was performed followed by endometrial curettings with copious amounts of tissue retrieved. At this point the procedure was terminated. Single-tooth tenaculum and speculum removed and the patient was returned to the dorsal supine position. She woke from anesthesia with ease and was taken to recovery room in stable condition. Findin. Bulky, enlarged fibroid uterus 2. Thickened, shaggy endometrium Complications: None apparent EBL: 5 mL Specimen: 1. Endocervical curetting 2. Endometrial curetting
[2020-09-15 11:28] VITALS: BP 99/63; PULSE 72; RESP 16; TEMP 36.2; O2SAT 100
== END 2020-09-15 12:01 | disposition home or self-care (01) ==
PROVIDERS: PCP Family Medicine; Visit Provider Obstetrics & Gynecology
PROC: 0UDB8ZZ Extraction of Endometrium, Via Natural or Artificial Opening Endoscopic (ICD-10-PCS; CPT 58558; principal; 2020-09-15 09:45)
DX: N85.2 Hypertrophy of uterus (principal); N85.00 Endometrial hyperplasia, unspecified; D25.9 Leiomyoma of uterus, unspecified; Z98.890 Other specified postprocedural states
CPT/HCPCS: 58558; 81025; 88305; J1885; J2001; J2405

== ENCOUNTER 2020-12-22 01:45 | Outpatient (CLI) | payer OTHER, SELFPAY ==
--- NOTE | 2020-12-22 06:45 | DI.MAMMO_ITS ---
EXAM: MAMMO SCREENING CLINICAL HISTORY: screening,Z12.39 TECHNIQUE: Mammograms were interpreted according to the usual protocol including computer analysis w [employer] CAD system, tomosynthesis and C-view imaging. COMPARISON: 2011 through 2016. FINDINGS: The breasts are composed of scattered fibroglandular densities, Breast Density category B. No suspicious masses or suspicious microcalcifications are seen. There is a stable smoothly marginat ed nodule containing calcifications in the subareolar region of the left breast, likely a fibroadenom a. No skin thickening or abnormal axillary lymph nodes are seen. There has been no significant change from prior exams. IMPRESSION: BI-RADS Category 2 - Benign Findings Yearly screening mammography is recommended. Breast Density - Category B, scattered fibroglandular densities. A negative radiographic report should not delay biopsy if a dominant or clinically suspicious mass is present. Up to ten percent of cancers are not identified on mammography. A negative report may reinforce clinical impression. Adenosis and dense breasts may obscure an underlying neoplasm. False positive reports average 6 to 10%. Patient will receive a letter notifying them of these results.
== END 2020-12-22 02:05 ==
PROVIDERS: PCP Family Medicine; Visit Provider Family Medicine
DX: Z12.31 Encounter for screening mammogram for malignant neoplasm of breast (principal)
CPT/HCPCS: 77063; 77067

== ENCOUNTER 2021-05-12 13:15 | Outpatient (CLI) | payer OTHER, SELFPAY ==
--- NOTE | 2021-05-12 12:45 | DI.RAD_ITS ---
Exam(s) XR WRIST RT COMPLETE EXAM: XR WRIST RT COMPLETE CLINICAL HISTORY: right wrist pain, M25.539. TECHNIQUE: 2D digital imaging was performed. COMPARISON: No exams were available for comparison FINDINGS: No evidence of fracture or dislocation. No significant ulnar variance. Bone density normal. No oss eous lesions. IMPRESSION: No significant radiographic findings on these three views of the right wrist. DATA REPOSITORY: RADIATION DOSE DELIVERED:
== END 2021-05-12 13:35 ==
PROVIDERS: PCP Family Medicine; Visit Provider Family Medicine
DX: M25.531 Pain in right wrist (principal)
CPT/HCPCS: 73110

== ENCOUNTER 2021-05-30 14:39 | Outpatient (REF) | payer OTHER, SELFPAY ==
[2021-05-31 01:54] LABS: COVID-19 RT-PCR UVMMC Result Negative (Negative)
== END 2021-05-30 14:40 | disposition home or self-care (01) ==
LOC: LBN 14:39
PROVIDERS: PCP Family Medicine; Referring Provider Family Medicine; Visit Provider Family Medicine
DX: Z11.52 Encounter for screening for COVID-19 (principal); Z20.822 Contact with and (suspected) exposure to COVID-19
CPT/HCPCS: U0003

== ENCOUNTER 2021-06-29 13:45 | Outpatient (REF) | payer OTHER, SELFPAY ==
[2021-06-29 12:49] LABS: Source Nasal/Nares
[2021-06-30 05:10] LABS: COVID-19 PCR Negative (Negative)
== END 2021-06-29 13:46 | disposition home or self-care (01) ==
LOC: LBN 13:45
PROVIDERS: PCP Family Medicine; Visit Provider Surgery
DX: Z20.822 Contact with and (suspected) exposure to COVID-19 (principal)
CPT/HCPCS: 87635

== ENCOUNTER 2021-07-01 08:13 | Day surgery (SDC) | payer OTHER, SELFPAY ==
--- NOTE | 2021-06-30 11:50 | W.COLOREPORT ---
Colonoscopy Report Date of procedure: 07/01/21 Pre-op diagnosis general: CRC screen Post-op diagnosis procedure note: other (polyp) Surgeon: Cintia Buck Anesthesia Type: General LMA/ETT Estimated blood loss (mL): 0 Pathology: other Complications: None Disposition: same day Prep: Miralax/Dulcolax Retraction Time: 9 Procedure Description: After informed consent was obtained the patient was taken to the procedure room and placed in a left decubitous position. Monitors were applied and a time out was done. The patients name, date of , procedure, allergies to medications and metal in their body was reviewed. The patient was then sedated. Once sedated and comfortable a rectal exam was done. External exam was normal. Internal exam revealed a normal sphincter tone and no palpable masses. The scope was then introduced and retrofelexed. No internal hemorrhoids were identified. The scope was then advanced to the cecum without difficulty. The TI and appendiceal orifice were identified. The prep was good. The scope was then slowly retracted over 9 minutes back into the rectum. Small polyp in the rectum-5 mm flat. This is removed with a cold biting forcep. All specimen is retrieved and no bleeding noted. The scope is otherwise normal. There are no diverticula or AVMs visualized today. The mucosa is pink and healthy. There are no hemorrhoids. The scope was removed and the patient was woken up and taken back to Same day surgery in stable condition. The patient tolerated the procedure well and there were no immediate complications. Follow up: The patient should follow up in 7-10 years unless they develop changes in bowel habits or other new gastrointestinal complaints.
--- NOTE | 2021-06-30 11:51 | PDOC.DSDIS_ITS ---
Discharge Plan Disposition Patient Disposition: HOME Condition: Good Discharge Details Reason For Visit: colon scope Attending Provider: Cintia Buck Primary Care Provider: Evelyn Caldera Home Meds and New Rx's Prescriptions: No Action furosemide 20 mg tablet 20 mg PO DAILY PRN (Reason: edema) Qty: 90 RF: 4 celecoxib 100 mg capsule 100 mg PO BID Qty: 180 RF: 4 calcium carbonate-vitamin D3 [Caltrate with Vitamin D3] 1 EACH tablet 2 tab PO DAILY RF: 0 fluocinolone [Synalar] 60 ML solution 10 - 15 ml Topical DAILY PRNQty: 6 RF: 12 cholecalciferol (vitamin D3) [Vitamin D3] 2,000 UNIT capsule 2,000 unit PO DAILY RF: 0 [place] 0.02 % cream 1 applic Topical HS Qty: 40 RF: 4 ketoconazole [Nizoral] 2 % shampoo 1 applic Topical 2x/week Qty: 3 RF: 4 albuterol sulfate [ProAir HFA] 90 mcg/actuation HFA aerosol inhaler 1 - 2 puff Inhalation Q4H PRN Qty: 3 RF: 4 estradiol [Yuvafem] 10 mcg tablet 10 mcg vaginal .3 times weekly Qty: 36 RF: 4 trazodone 50 mg tablet 50 mg PO QHS Qty: 90 RF: 5 clindamycin phosphate 1 % solution 5 ml Topical DAILY PRN (Reason: psoriasis) Qty: 180 RF: 5 fluticasone propionate 50 mcg/actuation spray,suspension 2 spray intranasal DAILY Qty: 47.4 RF: 5 bupropion HCl [Wellbutrin XL] 300 mg tablet extended release 24 hr 300 mg PO DAILY Qty: 90 RF: 4 semaglutide 14 mg tablet 14 mg PO DAILY Qty: 90 RF: 3 fluconazole [Diflucan] 150 mg tablet 150 mg PO Q3D RF: 0 betamethasone valerate [Luxiq] 0.12 % foam 1 applic TP DAILY PRN (Reason: skin irritation) RF: 0 cetirizine [Zyrtec] 10 mg Tablet 10 mg PO DAILY PRNRF: 0 Discharge Instructions Additional Instructions: DSU Colonoscopy Post- Op Instructions Instructions for Everyone who is given Anesthesia: For your safety, please do the following for the next twenty-four (24) hours: *Do Not operate a motor vehicle (car, truck, motorcycle, etc.) *Do Not drink alcoholic beverages or use any recreational drugs for the first 24 hours or while taking pain medications. The medications in your body may have a reaction that can be dangerous. *Do Not make any important decisions or sign any important papers. Findings: small polyp in rectum. Otherwise normal. Follow up: My office will send a letter in 2 to 3 weeks time, detailing as to what type of polyp it was and when we want you to repeat your colonoscopy probably 7-10 yrs time., 1. No lifting over 20 pounds or strenuous activity for the first 24 hours after your procedure. After 24 hours there are no restrictions on your activity but you may feel fatigued for a few days. 2. After you arrive home you may have a light meal and return to your normal diet as you can tolerate it without feeling sick to your stomach. 3. You may have a bloated, gaseous feeling in your belly (abdomen) after a colonoscopy. Passing gas and belching will help. Walking or lying down on your left side with your knees flexed may relieve the discomfort. Call the office at [phone] (Office) or [phone] (Hospital) right away if you notice any of the following: a.Vomiting of blood or ?coffee ground stools?. b.Rectal bleeding 1Tbsp, blood clots or continuous bleeding. c.Severe belly (abdominal) pain. d.A hard distended belly (abdomen) and an inability to pass gas. 4. Please don?t expect to have a normal BM (bowel movement) for 2-3 days after your procedure. 5. If there are questions regarding the findings of your procedure, please contact your doctor 6. If you are unable to contact your doctor with a problem, contact the hospital at [phone]. 7. Continue all your regular medications unless directed otherwise. I understand the above instructions and have no questions. Signature of Patient or Adult Escort Name of Responsible Adult Escort Signature of Nurse Date/Time Activity:: see above Diet:: see above Discharge Orders Discharge Orders: Discharge Order (Routine); Ordered 06/30/21 Ordered By: Cintia Buck DS: Diagnosis Discharge Diagnosis (1) Colon cancer screening: Status: Acute
[2021-07-01 08:30] VITALS: BP 123/83; PULSE 86; RESP 16; TEMP 36.7; O2SAT 98
--- NOTE | 2021-07-01 08:40 | ANES.PREOP_ITS ---
General Info Date of Service Date Performed: 07/01/21 Height: 5 ft 4 in Weight: 64.1 kg Body Mass Index (BMI): 24.3 Surgical Procedure: Operation Date: 07/01/21 09:05 Proposed Procedures Side Surgeon federica Buck, DO Meds Allergies and Home Medications Allergies Allergy/AdvReac Type Severity Reaction Status Date / Time Iodinated Contrast Media Allergy Severe Anaphylaxsi Verified 07/01/21 08:25 [Iodinated Contrast- Oral s and IV Dye] Home Medication Medication Instructions Recorded calcium carbonate-vitamin D3 2 tab PO DAILY 05/01/13 [Caltrate with Vitamin D3] fluocinolone [Synalar] 10 - 15 ml TOPICAL DAILY PRN #6 03/01/15 bottle cholecalciferol (vitamin D3) 2,000 unit PO DAILY 08/11/15 [Vitamin D3] tretinoin (emollient) 0.02 % 1 applic TOPICAL HS #40 gm 08/09/18 topical cream ketoconazole 2 % shampoo 1 applic TOPICAL 2x/week #3 bottle 03/27/19 albuterol sulfate 90 mcg/actuation 1 - 2 puff INHALATION Q4H PRN #3 05/03/20 aerosol inhaler inhaler estradiol 10 mcg vaginal tablet 10 mcg VAGINAL .3 times weekly #36 08/26/20 tab betamethasone valerate [Luxiq] 1 applic TP DAILY PRN 09/15/20 fluconazole [Diflucan] 150 mg PO Q3D 09/15/20 celecoxib 100 mg capsule 100 mg PO BID #180 cap 12/14/20 furosemide 20 mg tablet 20 mg PO DAILY PRN #90 tab 12/14/20 clindamycin phosphate 1 % topical 5 ml TOPICAL DAILY PRN #180 ml 12/30/20 solution trazodone 50 mg tablet 50 mg PO QHS #90 tab 12/30/20 fluticasone propionate 50 2 spray INTRANASAL DAILY #47.4 g 02/25/21 mcg/actuation nasal spray,suspension bupropion HCl 300 mg 24 hr tablet, 300 mg PO DAILY #90 tab 04/12/21 extended release semaglutide 14 mg tablet 14 mg PO DAILY #90 tab 05/13/21 cetirizine [Zyrtec] 10 mg PO DAILY PRN 07/01/21 Current Visit Medications: Current Medications Generic Name Dose Route Start Last Admin Trade Name Freq PRN Reason Stop Dose Admin Ringer's Solution 1,000 mls @ 80 mls/hr 07/01/21 06:00 IV 07/30/21 23:59 [facility]ION [facility] IV Miscellaneous Supplies 1 each 07/01/21 06:00 Iv Access IV 07/30/21 23:59 DIRECTED JASON Ondansetron HCl 4 mg 06/30/21 11:39 Ondansetron 4 Mg/2 Ml Vial IVP Q4H PRN PRN Nausea / Vomiting Sodium Chloride 0 ml 07/01/21 06:00 Normal Saline Flush 10 Ml Syr IV 07/30/21 23:59 PRN PRN Sodium Chloride 0 ml 07/01/21 06:00 Normal Saline 10 Ml Vial IJ 07/30/21 23:59 DIRECTED PRN Sterile Water 0 ml 07/01/21 06:00 Water,Injection,Sterile 10 Ml Vial IJ 07/30/21 23:59 DIRECTED PRN PFSH Active Problems Active Problems: Problem Status Onset Code Colon cancer screening Z12.11 Wrist pain M25.539 Encounter for annual physical exam Z00.00 Encounter for screening colonoscopy Z12.11 Impaired renal function N28.9 Diarrhea R19.7 Status post dilation and curettage Z98.890 Thickened endometrium R93.89 Abnormal pelvic ultrasound R93.89 Contusion, hip S70.00XA HLA B27 (HLA B27 positive) Z15.89 GIANNA positive R76.8 Rotator cuff tear, right ~09/2017 M75.101 SLAP lesion of right shoulder ~09/2017 S43.431A Bursitis of right shoulder ~09/2017 M75.51 Tendonitis of long head of biceps brachii of right shoulder ~09/2017 M75.21 Adhesive capsulitis of right shoulder ~11/2019 M75.01 Left carpal tunnel syndrome ~02/2020 G56.02 Abnormal uterine bleeding N93.9 Impingement syndrome of right shoulder ~09/2017 M75.41 Asthma J45.909 Cystocele 02/02/16 Psoriasis 12/14/11 L40.9 Medical History Medical History Asthma Cystocele (02/02/16) Impingement syndrome of right shoulder (~09/2017) Psoriasis (12/14/11) Rotator cuff rupture Shoulder instability Shoulder pain Supraspinatus tendon tear Thickened endometrium Surgical History Surgical History Arthroplasty of knee (~1992) ACL DEBRIDEMENT ARTHROSCOPY section (04/01/09) Cystoscopy (07/15/09) History of shoulder surgery R Rotator cuff Ligation of fallopian tube Repair, ACL (12/27/11) left Status post dilation and curettage VAGINAL DELIVERY 08/07/99 12/02/01 Tobacco Smoking/Tobacco Use Status: Never Passive smoking exposure: No Alcohol Alcohol Intake: current Alcohol intake frequency: a few times a month Alcohol type: beer, wine and hard liquor Substance Use Substance use: Never Substance use type: does not use Details: alcohol: t-7 Vital Signs and Lab Results Vital Signs Most Recent Vital Signs in EMR: Most Recent Vital Signs Temp Pulse Resp BP Pulse Ox 36.7 C 86 16 123/83 98 07/01/21 08:30 07/01/21 08:30 07/01/21 08:30 07/01/21 08:30 07/01/21 08:30 Lab Results Blood Type / Crossmatch: No Data to Display Complete Blood Count: 2 No Data to Display Complete Metabolic Panel: No Data to Display Liver Function Panel: No Data to Display Coagulation Panel: No Data to Display Cardiac Panel: No Data to Display Arterial Blood Gas: No Data to Display Venous Blood Gas: No Data to Display Pancreas Panel: No Data to Display Thyroid Panel: No Data to Display Infectious Disease: Coronavirus (COVID-19)(PCR) Negative (Negative) 06/29/21 10:30 06/29/21 Coronavirus 2019 Source Nasal/Nares 06/29/21 10:30 06/29/21 Blood Cultures: No Data to Display Toxicology Panel: No Data to Display Panel: No Data to Display Anesthesia Assessment and Plan Anesthesia History Personal History: No History of Anesthesia Complications Family History: No Family History of Anesthesia Complications Exercise Tolerance Exercise Tolerance: Metabolic Equivalents>4 Pertinent Negatives Pertinent Negatives: No Symptoms of GERD, No Major Cardiovascular Symptoms or Complaints, No Major Pulmonary Symptoms or Complaints and No History of CVA/TIA Cardiac & Pulmonary Exam Cardiac Exam: Normal S1/S2 Heart Sounds Pulmonary Exam: Clear Bilateral Breath Sounds and No cough or Cold Cardiac and Pulmonary Comment:: Inhaler use only with seasonal allergies. None for over a month. Airway Exam Known Difficult Airway: No Mallampati Class: 1 Mouth Opening: Normal (> 3cm) Thyromental Distance: Greater than 3 cm Neck Range of Motion: Full ROM Neck Circumference: Normal Teeth Condition: Normal Dentition ASA Classification ASA Score: ASA 2 Emergency Case?: No NPO Status NPO Status: NPO Clears >2 hours, Solids >8 hours Status Status: Negative HCG Anesthesia Plan Resuscitation Status: Full Code Anesthesia Technique: MAC Anesthesia Airway Planned: Natural Airway Monitors Used: Standard Monitors
[2021-07-01] MEDS: Lactated Ringers 1,000 ML 80 ML IV (08:47)
[2021-07-01 08:49] VITALS: BMI 24.3
--- NOTE | 2021-07-01 09:48 | BOWEL_PTH ---
PATIENT: Meghan Lockhart LOC: [facility] U#:[id number] AGE/SX: 51/F ROOM: RE07/01/[address]: Cintia Buck : 1970 BED: DIS: 07/01/2021 SPEC #: [id number] RECD: 07/01/21 11:42 STATUS: JENNY REQ #: [id number] JOSELYN: 07/01/21 09:[address]: Cintia Buck DEPT: Surgical Specimen RECD BY: Aure Schwartz ENTERED: 07/01/21 11:43 SP TYPE: Bowel OTHR DR: Evelyn Caldera MD, DC Tissues: 1 - BIOPSY BOWEL Procedures: GROSS AND MICRO LEVEL 4 Comments: [id number]
[2021-07-01 09:59] VITALS: BP 111/63; PULSE 72; RESP 16; TEMP 36.4; O2SAT 99
--- NOTE | 2021-07-01 10:08 | W.ANESPOSTOP ---
Postoperative Evaluation Date, Time and Location Date Performed: 07/01/21 Time Performed: 10:09 Patient Location: Day Surgery Unit Vital Signs Most Recent Imported Vital Signs: Most Recent Vital Signs Temp Pulse Resp BP Pulse Ox 36.4 C L 72 16 111/63 99 07/01/21 09:59 07/01/21 09:59 07/01/21 09:59 07/01/21 09:59 07/01/21 09:59 Pain Score Most Recent Pain Score: Most Recent Pain Score Pain Level 0 07/01/21 09:59 Assessment Mental Status: Awake (Alert & Oriented to Patient Baseline) Airway and Respiratory Function: Patent airway with normal (patient baseline) respiratory exam Cardiovascular Function: Hemodynamically Stable Hydration Status: Adequately Hydrated Nausea & Vomiting: No Nausea or Vomiting Pain: Pt. Denies Any Pain Peripheral Nerve Block: Patient did not receive a nerve block
[2021-07-01 10:26] VITALS: BP 113/76; PULSE 64; RESP 16; TEMP 36.5; O2SAT 100
== END 2021-07-01 11:05 | disposition home or self-care (01) ==
PROVIDERS: PCP Family Medicine; Visit Provider Surgery
PROC: 0DJD8ZZ Inspection of Lower Intestinal Tract, Via Natural or Artificial Opening Endoscopic (ICD-10-PCS; CPT 45378; principal; 2021-07-01 09:00)
DX: Z12.11 Encounter for screening for malignant neoplasm of colon (principal); K62.1 Rectal polyp
CPT/HCPCS: 45380; 88305; J2704

== ENCOUNTER 2021-07-29 22:01 | Outpatient (REF) | payer OTHER, SELFPAY ==
[2021-07-31 08:38] LABS: COVID-19 RT-PCR UVMMC Result Positive (Negative)
== END 2021-07-29 22:02 | disposition home or self-care (01) ==
LOC: LBN 22:01
PROVIDERS: PCP Family Medicine; Visit Provider Family Medicine
DX: Z20.822 Contact with and (suspected) exposure to COVID-19 (principal); R05.9 Cough, unspecified; R51.9 Headache, unspecified
CPT/HCPCS: U0003

== ENCOUNTER 2021-08-01 12:30 | Outpatient (CLI) | payer OTHER, SELFPAY ==
[2021-08-01 13:46] VITALS: BP 133/85; PULSE 86; RESP 15; RESP 16; TEMP 37.3; O2SAT 97
[2021-08-01] MEDS: Normal Saline 500 ML 30 ML IV (14:19)
[2021-08-01 14:20] VITALS: BP 131/81; PULSE 76; RESP 18; TEMP 37.8; O2SAT 98
[2021-08-01 14:50] VITALS: BP 133/85; PULSE 82; RESP 18; TEMP 38.1; O2SAT 98
[2021-08-01 15:20] VITALS: BP 138/93; PULSE 74; RESP 16; TEMP 37.7; O2SAT 99
[2021-08-01 15:50] VITALS: BP 124/81; PULSE 77; RESP 15; TEMP 37.1; O2SAT 98
== END 2021-08-01 12:31 | disposition home or self-care (01) ==
LOC: INF 12:31
PROVIDERS: PCP Family Medicine; Visit Provider Family Medicine
DX: U07.1 COVID-19 (principal)
CPT/HCPCS: 96365

== ENCOUNTER 2021-12-08 19:00 | Outpatient (REF) | payer OTHER, SELFPAY ==
[2021-12-08 13:55] LABS: Hemoglobin A1C 5.5 % (<5.7)
[2021-12-08 13:56] LABS: ALT 19 U/L (14-59); AST 14 U/L (15-37); Alkaline Phosphatase 59 U/L (46-116); Anion Gap 7.3 mmol/L (3-11); BUN 21 mg/dL (7-18); Bilirubin, Total 0.6 mg/dL (0.2-1.0); CO2 27.7 mmol/L (21.0-32.0); CREATININE 1.2 mg/dL (0.55-1.02); Calcium 9.2 mg/dL (8.5-10.1); Calculated LDL 76 mg/dL (<100); Chloride 102 mmol/L (98-107); Cholesterol 141 mg/dL (<200); Estimated GFR 47.36 (mL/min/1.73m2); Glucose 83 mg/dL (74-106); HDL Cholesterol 58 mg/dL (40-60); Potassium 3.9 mmol/L (3.5-5.1); Sodium 137 mmol/L (136-145); Total Protein 6.8 g/dL (6.4-8.2); Triglyceride 35 mg/dL (<150)
== END 2021-12-08 19:01 | disposition home or self-care (01) ==
LOC: LBN 19:00
PROVIDERS: PCP Family Medicine; Visit Provider Family Medicine
DX: Z00.00 Encounter for general adult medical examination without abnormal findings (principal); N28.9 Disorder of kidney and ureter, unspecified; Z13.220 Encounter for screening for lipoid disorders
CPT/HCPCS: 80053; 80061; 83036

== ENCOUNTER 2021-12-23 00:48 | Outpatient (CLI) | payer OTHER, SELFPAY ==
--- NOTE | 2021-12-23 09:08 | DI.RAD_ITS ---
Exam(s) XR THUMB LT EXAM: XR THUMB LT CLINICAL HISTORY: thumb was pulled by dog, now painful,M79.645. TECHNIQUE: 2D digital imaging was performed. COMPARISON: No exams were available for comparison FINDINGS: 3 views Three dedicated left thumb views reveal small corticated appearing os ossific density lateral aspect interphalangeal joint of, possibly from prior nonacute fracture. There is no degenerative change in joint. The metacarpophalangeal joint of thumb appears unremarkable as does the articulation between the thumb metacarpal and trapezium. Bone density is normal. No osseous lesions. There is no radiopaque foreign body. IMPRESSION: DATA REPOSITORY: RADIATION DOSE DELIVERED:
== END 2021-12-23 01:08 ==
PROVIDERS: PCP Family Medicine; Visit Provider Family Medicine
DX: M79.645 Pain in left finger(s) (principal); M85.842 Other specified disorders of bone density and structure, left hand
CPT/HCPCS: 73140

== ENCOUNTER 2022-01-27 18:54 | Outpatient (REF) | payer OTHER, SELFPAY ==
[2022-01-28 01:09] LABS: COVID-19 RT-PCR UVMMC Result Negative (Negative)
== END 2022-01-27 18:55 | disposition home or self-care (01) ==
LOC: LBN 18:54
PROVIDERS: PCP Family Medicine; Visit Provider Family Medicine
DX: Z20.822 Contact with and (suspected) exposure to COVID-19 (principal); J02.9 Acute pharyngitis, unspecified
CPT/HCPCS: U0003

== ENCOUNTER 2022-07-25 12:16 | Outpatient (REF) | payer OTHER, SELFPAY ==
--- NOTE | 2022-07-25 12:00 | SKI_PTH ---
PATIENT: Meghan Lockhart LOC: [facility] U#:[id number] AGE/SX: 52/F ROOM: RE07/25/[address]: Evelyn Caldera MD, DC : 1970 BED: DIS: 07/25/2022 SPEC #: [id number] RECD: 07/26/22 12:49 STATUS: JENNY REQ #: [id number] JOSELYN: 07/25/22 12:[address]: Evelyn Caldera DEPT: Surgical Specimen RECD BY: Evie Santos Tissues: 1 - SKIN BIOPSY(SHAVE/PUNCH) Procedures: SKIN LEVEL 4 Comments: [id number]
== END 2022-07-25 12:17 | disposition home or self-care (01) ==
LOC: LBN 12:16
PROVIDERS: PCP Family Medicine; Visit Provider Family Medicine
DX: L82.1 Other seborrheic keratosis (principal)
CPT/HCPCS: 88305

== ENCOUNTER → 2023-06-27 00:44 | Outpatient (CLI) | payer OTHER, SELFPAY ==
--- NOTE | 2023-06-27 12:44 | DI.MAMMO_ITS ---
Exam(s) MAMMO SCREENING EXAM: MAMMO SCREENING CLINICAL HISTORY: screening,z12.39 TECHNIQUE: Mammograms were interpreted according to the usual protocol including computer analysis w [employer] CAD system, tomosynthesis and C-view imaging. COMPARISON: 2013 through 2020 FINDINGS: The breasts are composed of scattered fibroglandular densities, Breast Density category B. No suspicious masses or suspicious microcalcifications are seen. Stable nodule in the subareolar reg ion of the left breast. No skin thickening or abnormal axillary lymph nodes are seen. There has been no significant change from prior exams. IMPRESSION: BI-RADS Cat 2 - Benign Findings Yearly screening mammography is recommended. Breast Density - Category B, scattered fibroglandular densities. A negative radiographic report should not delay biopsy if a dominant or clinically suspicious mass is present. Up to ten percent of cancers are not identified on mammography. A negative report may reinforce clinical impression. Adenosis and dense breasts may obscure an underlying neoplasm. False positive reports average 6 to 10%. Patient will receive a letter notifying them of these results.
== END ==
PROVIDERS: PCP Family Medicine; Visit Provider Family Medicine
DX: Z12.31 Encounter for screening mammogram for malignant neoplasm of breast (principal)
CPT/HCPCS: 77063; 77067

== ENCOUNTER → 2023-07-20 10:04 | Outpatient (CLI) | payer OTHER, SELFPAY ==
--- NOTE | 2023-07-20 09:45 | DI.RAD_ITS ---
Exam(s) XR CERVICAL SPINE COMP 4-5V EXAM: XR CERVICAL SPINE COMP 4-5V CLINICAL HISTORY: neck pain,m54.2. TECHNIQUE: 2D digital imaging was performed. Five views were performed. COMPARISON: No exams were available for comparison FINDINGS: BONES: No fracture or destructive lesion. Vertebral bodies are unremarkable. DISKS: Moderate narrowing of the C4-5 disc space. Small endplate osteophytes are noted from C4-5 thr ough C6-7. There are minimal facet joint degenerative changes. There is right-sided neural foramina l narrowing at C4-5 and C5-6. ALIGNMENT: Cervical spinal alignment is within normal limits. The odontoid and atlantoaxial articulat ions are normal. SOFT TISSUE: Normal. The lung apices are clear. IMPRESSION: The bilateral neural foraminal narrowing at C4-5 and C5-6. DATA REPOSITORY: RADIATION DOSE DELIVERED:
== END ==
PROVIDERS: PCP Family Medicine; Visit Provider Family Medicine
DX: M99.71 Connective tissue and disc stenosis of intervertebral foramina of cervical region
CPT/HCPCS: 72050

== ENCOUNTER 2023-07-20 15:54 | Outpatient (REF) | payer OTHER, SELFPAY ==
[2023-07-20 16:13] LABS: Iron 80 ug/dL (50-170)
[2023-07-20 16:26] LABS: ALT 26 U/L (14-59); AST 16 U/L (15-37); Albumin 3.6 g/dL (3.4-5.0); Alkaline Phosphatase 54 U/L (46-116); BUN 22 mg/dL (7-18); Bilirubin, Total 0.4 mg/dL (0.2-1.0); CREATININE 1.1 mg/dL (0.55-1.02); Calcium 9.3 mg/dL (8.5-10.1); Chloride 104 mmol/L (98-107); Estimated GFR 60.08 (mL/min/1.73m2); Ferritin 31 ng/mL (8-252); Glucose 84 mg/dL (74-106); Potassium 4.1 mmol/L (3.5-5.1); Sodium 140 mmol/L (136-145); TSH (W/Ref FT4) 0.94 uIU/mL (0.36-3.74); Total Protein 6.5 g/dL (6.4-8.2)
== END 2023-07-20 15:55 | disposition home or self-care (01) ==
LOC: LBN 15:54
PROVIDERS: PCP Family Medicine; Visit Provider Family Medicine
DX: I10 Essential (primary) hypertension (principal); E03.9 Hypothyroidism, unspecified; L65.9 Nonscarring hair loss, unspecified; M54.2 Cervicalgia
CPT/HCPCS: 80053; 82728; 83540; 84443

== ENCOUNTER → 2023-09-26 01:35 | Outpatient (CLI) | payer OTHER, SELFPAY ==
--- NOTE | 2023-09-26 08:00 | DI.RAD_ITS ---
Exam(s) XR KNEE RT 3V AP,LAT,NEW EXAM: XR KNEE RT 3V AP,LAT,NEW CLINICAL HISTORY: medial right knee pain,M25.561. TECHNIQUE: 2D digital imaging was performed of the right knee. Three views obtained. AP, lateral an d PA tunnel views were obtained. COMPARISON: There are no priors for comparison. FINDINGS: BONES: No acute fracture is present. No bony destructive lesion is seen. JOINTS: The knee is normally aligned. No joint effusion is seen. SOFT TISSUE: Normal. IMPRESSION: Unremarkable radiographs of the right knee. DATA REPOSITORY: RADIATION DOSE DELIVERED:
== END ==
PROVIDERS: PCP Family Medicine; Visit Provider Family Medicine
DX: M25.561 Pain in right knee (principal)
CPT/HCPCS: 73562

== ENCOUNTER 2024-05-02 01:13 | Outpatient (CLI) | payer OTHER, SELFPAY ==
--- NOTE | 2024-05-02 11:00 | DI.RAD_ITS ---
Exam(s) XR STERNOCLAVICULAR JOINTS EXAM: XR STERNOCLAVICULAR JOINTS CLINICAL HISTORY: sternoclavicular pain; M89.2B6-aawhy specified disorders of bone, shoulder. TECHNIQUE: 2D digital imaging was performed. COMPARISON: No exams were available for comparison FINDINGS: 3 views The right clavicle and sternoclavicular joint appears satisfactory. There appears to be slight overr iding of the left sternoclavicular joint but this may be projectional. No clavicle fractures identified. IMPRESSION: As above. If clinically indicated further study with CT or or MRI the sternoclavicular joints can be performed DATA REPOSITORY: RADIATION DOSE DELIVERED:
== END 2024-05-02 01:33 ==
LOC: DI 01:13
PROVIDERS: PCP Family Medicine; Visit Provider Family Medicine
DX: M89.8X1 Other specified disorders of bone, shoulder (principal)
CPT/HCPCS: 71130

== ENCOUNTER 2025-01-20 07:52 | Outpatient (CLI) | payer OTHER, SELFPAY ==
[2025-01-20 12:45] LABS: HCT 35.8 % (36.0-46.0); HGB 12.3 g/dL (11.2-15.7); MCH 29.9 pg (27.0-33.0); MCHC 34.4 % (32.0-36.0); MCV 87 fL (80-95); MPV 10.4 fL (8.0-11.0); Platelet Count 218 10^3/uL (130-400); RBC 4.12 10^6/uL (3.93-5.22); RDW-SD 38.7 fL; WBC 4.25 10^3/uL (4.4-10.8)
[2025-01-20 13:28] LABS: ALT 17 U/L (14-59); AST 19 U/L (15-37); Albumin 3.7 g/dL (3.4-5.0); Alkaline Phosphatase 41 U/L (46-116); Anion Gap 4.8 mmol/L (3-11); BUN 17 mg/dL (7-18); Bilirubin, Total 0.7 mg/dL (0.2-1.0); CO2 29.2 mmol/L (21.0-32.0); CREATININE 1.2 mg/dL (0.55-1.02); Calcium 9.1 mg/dL (8.5-10.1); Chloride 103 mmol/L (98-107); Estimated GFR 53.79 (mL/min/1.73m2); Ferritin 52 ng/mL (8-252); Glucose 93 mg/dL (74-106); Potassium 3.8 mmol/L (3.5-5.1); Sodium 137 mmol/L (136-145); TSH (W/Ref FT4) 2.13 uIU/mL (0.36-3.74); Total Protein 6.7 g/dL (6.4-8.2); Vitamin B12 1592 pg/mL (193-986); Vitamin D 25 Total 72 ng/mL (30-100)
[2025-01-20 13:39] LABS: PHOSPHORUS 3.4 mg/dL (2.6-4.7)
[2025-01-20 13:46] LABS: Iron 94 ug/dL (50-170)
[2025-01-20 23:12] LABS: Parathyroid Hormone,Intact 23 pg/mL (19-88)
== END 2025-01-20 07:53 | disposition home or self-care (01) ==
PROVIDERS: PCP Family Medicine; Referring Provider Family Medicine; Visit Provider Family Medicine
DX: I10 Essential (primary) hypertension (principal); Z78.0 Asymptomatic menopausal state; R53.83 Other fatigue; M81.0 Age-related osteoporosis without current pathological fracture
CPT/HCPCS: 36415; 80053; 82306; 85027; 82607; 82728; 83540; 83970; 84100; 84443

== ENCOUNTER 2025-01-22 18:06 | Outpatient (REF) | payer OTHER, SELFPAY ==
[2025-01-22 18:15] LABS: Creatinine,Urine 84.56 mg/dL
[2025-01-22 18:21] LABS: Creatinine,24hr Ur 1.27 g/24hr (0.60-1.80); Total Volume 1500 ml
[2025-01-24 09:38] LABS: Calcium Urine 21.2 mg/dL (See Note); Calcium Urine 24 hr 32 mg/24hr (100-300); Timed Urine Volume 150 mL
== END 2025-01-22 18:07 | disposition home or self-care (01) ==
LOC: LBN 18:06
PROVIDERS: PCP Family Medicine; Visit Provider Family Medicine
DX: M81.0 Age-related osteoporosis without current pathological fracture (principal)
CPT/HCPCS: 81050; 82340; 82570

== ENCOUNTER 2025-01-27 01:52 | Outpatient (CLI) | payer OTHER, SELFPAY ==
--- NOTE | 2025-01-27 14:30 | DI.US_ITS ---
APPROVED REPORT EXAM: Comprehensive 2D, Doppler, and color-flow Echocardiogram Patient Location: Out-Patient Material Control Specialist: Rafal Hopson RDCS (AE) Indications: Edema Other Information Study Quality: Adequate Conclusion Normal left ventricular wall thickness and chamber size. Ejection fraction is 65%. Wall motion is n ormal Normal right ventricular size and function Both atria are normal in size There is no structural or hemodynamically significant valvular disease Estimated right ventricular systolic pressure is 23 mmHg Wall motion Left Ventricle The left ventricle is normal size. The left ventricular systolic function is normal. The left ventric ular ejection fraction is within the normal range. There is normal left ventricular wall thickness. T here is normal LV segmental wall motion. There is no ventricular septal defect visualized. LVEF is 65 %. Right Ventricle The right ventricle is normal size. The right ventricular systolic function is normal. Atria The left atrium size is normal. The right atrium size is normal. The interatrial septum is intact wit h no evidence for an atrial septal defect. Aortic Valve The aortic valve is normal in structure. Aortic valve is trileaflet. There is no aortic valvular sten osis. No aortic regurgitation is present. Mitral Valve The mitral valve is normal in structure. No evidence of mitral valve stenosis. Trace mitral regurgita tion. Tricuspid Valve The tricuspid valve is normal in structure. There is no tricuspid valve stenosis. Trace tricuspid reg urgitation. The RVSP is 23.1 mmHg. Pulmonic Valve The pulmonary valve is normal in structure. There is no pulmonic valvular stenosis. There is no pulmo manuela valvular regurgitation. Great Vessels The aortic root is normal in size. Ascending aorta is not well visualized. Aortic arch is normal in c aliber. IVC is normal in size and collapses >50% with inspiration. Pericardium There is no pericardial effusion. 2D Dimensions IVSD d PLAX 0.71 cm F: 0.6-1.0 Ao Root d 2.88 cm F: 2.7 - 3.3 LVPW d PLAX 0.67 cm F: 0.6 - 1.0 LVID d PLAX 4.18 cm F: 3.8 - 5.2 LVDs 2.69 cm F: 2.2 - 3.5 LV EF Teichholz 65.5 % FS 35.59 % LV EDV (Teich) 77.8 mL LV ESV (Teich) 26.9 mL Stroke Vol Index (Teich) 31.65 M-Mode TAPSE 2.56 cm (M/F) >1.7 Auto EF LV EDV A4C 71.1 mL LV EDV A2C 72.1 mL LV EDV BP 71.5 mL LV ESV A4C 24.9 mL LV ESV A2C 25.0 mL LV ESV BP 25.4 mL LVEF(%) A4C 65.0 % LVEF(%) A2C 65.3 % LVEF(%) BP 64.4 % LV SV A4C 46.2 ml LV SV A2C 47.0 ml LV SV BP 46.1 ml LV CO A4C 3.7 L/min LV CO A2C 3.9 L/min LV CO BP 3.8 L/min HR A4C 79.47 BPM HR A2C 81.97 BPM LV EDV Index (BP) LA Volume LA Length A4C 2.9 cm LA Length A2C 3.9 cm LA Area A4C s 8.19 cm2 LA Area A2C s 8.80 cm2 LA Vol A4C A-L 19.28 mL LA Vol A2C A-L 16.90 mL LA Vol Biplane A-L 20.7 mL LA Vol/BSA A4C A-L LA Vol/BSA A2C A-L LA Vol/BSA BP A-L 12.9 mL/m2 LA Vol A4C MOD 16.1 mL LA Vol A2C MOD 15.4 mL LA Vol BP MOD 17.9 mL RA Volume RA Area A4C 8.0 cm2 RA ESV A4C (A-L) 13.7mL RA Vol/BSA A4C A-L RA Length A4C 3.9 cm RA ESV A4C (MOD) 13.2mL LV Diastology MV E' lateral 0.140 (>0.1 m/s) MV E Vmax 0.78 (0.4-1.3 m/s) MV E/E' LAT 5.53 (<14) MV A Vmax 0.55 (0.4-1.3 m/s) E/A Ratio 1.4 Aortic Valve AoV Vmax 1.00 m/s LVOT Vmax 0.94 m/s AoV Peak Grad 4.0 mmHg LVOT Peak Grad 3.5 mmHg AoV Area (Vmax) 2.15 cm2 LVOT VTI 0.199 m AoV VTI 0.218 m LVOT Mean Grad 1.9 mmHg AoV Mean Lio. 0.74 m/s LVOT SV 45.41 mL AoV Mean Grad 2.4 mmHg LVOT Diam s 1.70 cm AoV Area (VTI) 2.08 cm2 AV Regurg Peak Gr. 3.97 mmHg Velocity Ratio 0.94 Mitral Valve MV DT 172 (160-240 msec) Pulmonary Valve PV Vmax 0.62 (0.5-1.5 m/s) RVOT Vmax 0.61 m/s PV Peak Grad 1.5 mmHg RVOT Peak Gr. 1.5 mmHg PV Mean Lio 0.42 m/s RVOT VTI 0.138 m PV Mean Grad 0.8 mmHg RVOT Mean Gr. 0.9 mmHg Tricuspid Valve RA Pressure 3.00 mmHg TR Vmax 2.24 m/s TR Peak Grad 20.0 mmHg RVSP (TR) 23.1 mmHg
== END 2025-01-27 02:12 ==
LOC: DI 01:52
PROVIDERS: PCP Family Medicine; Visit Provider Internal Medicine Cardiovascular Disease
DX: R60.0 Localized edema (principal)
CPT/HCPCS: 93306

== ENCOUNTER 2025-02-02 02:44 | Outpatient (CLI) | payer OTHER, SELFPAY ==
--- NOTE | 2025-02-02 07:45 | DI.DEXA_ITS ---
Exam(s) XR DEXA BONE DENSITY W/WO ROBINSON EXAM: XR DEXA BONE DENSITY W/WO ROBINSON CLINICAL HISTORY: SCREENING FOR OSTEOPOROSIS IN POSTMENOPAUSAL STATUS,Z78.0 TECHNIQUE: COMPARISON: No exams were available for comparison FINDINGS: Lateral Spine Image: Unremarkable. No compression deformities identified. Left hip: Total T-Score: -0.7 Total Z-Score: 0.0 T- and Z-scores: Within normal limits. Lumbar Spine: Total T-Score: 0.2 Total Z-Score: 1.2 T- and Z-scores: Within normal limits. IMPRESSION: No evidence of osteoporosis.
== END 2025-02-02 03:04 ==
PROVIDERS: PCP Family Medicine; Visit Provider Family Medicine
DX: Z78.0 Asymptomatic menopausal state (principal); Z13.820 Encounter for screening for osteoporosis
CPT/HCPCS: 77080

== ENCOUNTER 2025-04-21 03:45 | Outpatient (CLI) | payer OTHER, SELFPAY ==
[2025-04-21 12:25] LABS: HCT 39.2 % (36.0-46.0); HGB 13.1 g/dL (11.2-15.7); MCH 30.5 pg (27.0-33.0); MCHC 33.4 % (32.0-36.0); MCV 91 fL (80-95); MPV 10.3 fL (8.0-11.0); Platelet Count 250 10^3/uL (130-400); RBC 4.29 10^6/uL (3.93-5.22); RDW 12.8 % (11.7-14.6); RDW-SD 43.2 fL; WBC 5.09 10^3/uL (4.4-10.8)
[2025-04-21 12:36] LABS: ESR < 1 mm/hr (0-30)
[2025-04-21 12:44] LABS: ALT 33 U/L (14-59); AST 18 U/L (15-37); Albumin 4.0 g/dL (3.4-5.0); Alkaline Phosphatase 50 U/L (46-116); Anion Gap 5.0 mmol/L (3-11); BUN 19 mg/dL (7-18); Bilirubin, Total 0.4 mg/dL (0.2-1.0); C-Reactive Protein < 0.50 mg/dL (<or=0.5); CO2 30.0 mmol/L (21.0-32.0); Calcium 9.3 mg/dL (8.5-10.1); Chloride 103 mmol/L (98-107); Estimated GFR 53.46 (mL/min/1.73m2); Glucose 90 mg/dL (74-106); Potassium 4.1 mmol/L (3.5-5.1); Sodium 138 mmol/L (136-145); Total Protein 7.1 g/dL (6.4-8.2)
[2025-04-21 15:03] LABS: Lab Add On Test DONE
[2025-04-21 15:49] LABS: Vitamin B12 988 pg/mL (193-986)
== END 2025-04-21 03:46 | disposition home or self-care (01) ==
PROVIDERS: PCP Family Medicine; Visit Provider Family Medicine
DX: I10 Essential (primary) hypertension; R53.83 Other fatigue
CPT/HCPCS: 36415; 80053; 85027; 85652; 86200; 86812; 82607; 86038; 86140; 86431

== ENCOUNTER 2025-05-11 08:51 | Outpatient (CLI) | payer OTHER, SELFPAY ==
--- NOTE | 2025-05-11 06:30 | DI.MAMMO_ITS ---
Exam(s) MAMMO SCREENING EXAM: MAMMO SCREENING CLINICAL HISTORY: screening Z12.39 TECHNIQUE: Bilateral full field digital CC and MLO mammographic images were obtained with 3D tomosynthesis and utilizing computer aided detection (CAD). COMPARISON: Comparison is made with prior examinations. FINDINGS: Masses/Architectural Distortion: No suspicious masses or areas of architectural distortion are present. There is a stable nodule in the subareolar region of the left breast. Microcalcifications: No suspicious pleomorphic-type are seen. Skin Thickening/Nipple Retraction: None. IMPRESSION: 1. No significant interval change with no specific features of malignancy noted. 2. Unless there is more urgent need, screening mammography is recommended, as per [place] [employer] guidelines. BI-RADS Category 2 - Benign Findings Breast Density - Category B - There are scattered areas of fibroglandular density. Breast density Category C or D implies that the patient has dense breast tissue. Dense breast tissue can make it harder to find cancer on a mammogram. Dense breast tissue is also associated with an increased risk of breast cancer. This information about the result of the mammogram report was provided to the patient to raise their awareness. Use this report when you speak with the patient about their risks for breast cancer, which includes their family history. At that time, you may recommend additional screening tests (Ultrasound or MRI) as these tests may add significant information. A negative radiographic report should not delay biopsy if a dominant or clinically suspicious mass is present. Up to ten percent of cancers are not identified on mammography. A negative report may reinforce clinical impression. Adenosis and dense breasts may obscure an underlying neoplasm. False positive reports average 6 to 10%. Patient will receive a letter notifying them of these results.
== END 2025-05-11 09:11 ==
PROVIDERS: PCP Family Medicine; Visit Provider Family Medicine
DX: Z12.31 Encounter for screening mammogram for malignant neoplasm of breast (principal); R92.323 Mammographic fibroglandular density, bilateral breasts
CPT/HCPCS: 77063; 77067

== ENCOUNTER 2025-06-17 03:20 | Outpatient (CLI) | payer OTHER, SELFPAY ==
--- NOTE | 2025-06-17 06:15 | DI.MRI_ITS ---
Exam(s) MR UPPER JOINT LT WO EXAM: MR UPPER JOINT LT WO CLINICAL HISTORY: rotator cuff injury,rotator cuff impingement syndrome,supraspinatus syndrom. TECHNIQUE: Multiplanar multisequence MRI was performed. COMPARISON: None. FINDINGS: BONES: There is no fracture or contusion pattern. There are few tiny subchondral cysts in the superior humeral head. JOINTS:The acromioclavicular joint shows inferior spurring. The glenohumeral joint is normal. TENDONS: Supraspinatus: Diffusely. Abnormal intermediate/high signal consistent with tendinosis. Focal area of high signal distally consistent with partial tear. Infraspinatus: Unremarkable. Subscapularis: Unremarkable. [place]: Unremarkable. Biceps and [place]: Unremarkable. MUSCLES: Unremarkable. GLENOID LABRUM: Unremarkable on this noncontrast examination. SOFT TISSUES: Unremarkable. BURSAE: Subacromial and subdeltoid bursae shows a small amount of fluid.. IMPRESSION: Supraspinatus tendinosis with small partial tear distally near the insertion. DATA REPOSITORY:
--- NOTE | 2025-06-17 10:55 | DI.CT_ITS ---
Exam(s) CT RENAL COLIC WO EXAM: CT RENAL COLIC WO CLINICAL HISTORY: hydronephrosis,impaired renal function,n13.30,n28.9. TECHNIQUE: Imaging Protocol: Axial computed tomography images with coronal and sagittal reformatted images were created and reviewed. Oral: yes / no COMPARISON: CR XR DEXA BONE DENSITY W/WO ROBINSON from 02/02/2025 US US RENAL from 05/14/2025 FINDINGS: Lung Bases: No acute findings. Liver: Normal density. No suspicious mass. Gallbladder and biliary tract: No radiodense calculus or biliary dilation. Pancreas: Normal density. No abnormal calcifications or inflammatory process. Spleen: Normal. Kidneys: Normal size, contour and axis. There is a large stone in the left renal pelvis and extending into the lower pole collecting system measuring 3.2 by 1.4 by 1.2 cm. The this causes moderate to severe hydronephrosis and of the upper and lower pole. There are other smaller calcifications noted at the lower pole. The right kidney shows a 4 millimeter stone in the midportion. No right hydronephrosis. No suspicious masses seen. Adrenal glands: No masses seen. Lymph nodes: Within normal limits. Vasculature: Abdominal aorta non-dilated. Soft tissues: Unremarkable. Bladder: No wall thickening. No mass or calculi. Bowel: No obstruction or bowel wall thickening. Increased quantity of stool. No evidence of appendicitis. Peritoneal cavity: No ascites. No focal collection. No mesenteric inflammatory response. Reproductive organs: Unremarkable. Bones: Unremarkable for age. IMPRESSION: Moderate to severe left hydronephrosis secondary to a large stone in renal pelvis and lower pole collecting system. RADIATION DOSE DELIVERED: 400.9mGy.cm Total DLP 400.9mGy.cm Total DLP DATA REPOSITORY: All CT scans at this facility are submitted to the National Radiology Data Registry (NRDR) Dose Index Registry (DIR) with the [employer] (A[employer]). RADIATION OPTIMIZATION: All CT scans at this facility use at least one of these dose optimization techniques: automated exposure control; mA and/or kV adjustment per patient size (includes targeted exams where dose is matched to clinical indication); or iterative reconstruction.
== END 2025-06-17 03:40 ==
LOC: DI 03:20
PROVIDERS: PCP Family Medicine; Visit Provider Family Medicine
DX: M75.42 Impingement syndrome of left shoulder (principal); N13.39 Other hydronephrosis; M75.32 Calcific tendinitis of left shoulder
CPT/HCPCS: 73221; 74176

== ENCOUNTER 2025-07-01 13:52 | Outpatient (CLI) | payer OTHER, SELFPAY ==
--- NOTE | 2025-07-01 09:15 | DI.RAD_ITS ---
Exam(s) XR SHOULDER LT COMPLETE 2+V EXAM: XR SHOULDER LT COMPLETE 2+V CLINICAL HISTORY: LEFT SHOULDER PAIN. TECHNIQUE: 2D digital imaging was performed of the left shoulder. Images were obtained. AP, Grashey, Y-view and axillary views were obtained. COMPARISON: No exams were available for comparison FINDINGS: BONES: No acute fracture is present. No bony destructive lesion is seen. JOINTS: No dislocation present. There are mild degenerative changes seen at the acromioclavicular joint. The glenohumeral joint is well maintained. SOFT TISSUE: Normal. IMPRESSION: Mild degenerative changes seen at the left AC joint. DATA REPOSITORY: RADIATION DOSE DELIVERED:
== END 2025-07-01 13:53 | disposition home or self-care (01) ==
LOC: DIORS 13:52
PROVIDERS: PCP Family Medicine; Visit Provider Student in an Organized Health Care Education/Training Program
DX: M75.102 Unspecified rotator cuff tear or rupture of left shoulder, not specified as traumatic (principal)
CPT/HCPCS: 73030

== ENCOUNTER 2025-07-08 16:00 | Outpatient (REF) | payer OTHER, SELFPAY ==
--- NOTE | 2025-07-08 15:50 | PAPFT_PTH ---
PATIENT: Meghan Lockhart LOC: [facility] U#:[id number] AGE/SX: 55/F ROOM: RE07/08/[address]: Bee Mendenhall DO : 1970 BED: DIS: 07/08/2025 SPEC #: [id number] RECD: 07/08/25 18:02 STATUS: JENNY REQ #: [id number] JOSELYN: 07/08/25 15:[address]: Bee Mendenhall DEPT: [facility] Cytology RECD BY: Evie Santos ENTERED: 07/08/25 18:03 SP TYPE: PAPFT OTHR DR: Evelyn Caldera MD, DC Tissues: 1 - CX/ENDOCX FOR PAP SMEARS Procedures: PAP THIN PREP/[facility] Screening HPV DNA PROBE Comments: [id number] (HPV 16 & 18/45)
== END 2025-07-08 16:01 | disposition home or self-care (01) ==
LOC: LBN 16:00
PROVIDERS: PCP Family Medicine; Visit Provider Obstetrics & Gynecology
DX: Z12.4 Encounter for screening for malignant neoplasm of cervix (principal)
CPT/HCPCS: 88142; 87624

== ENCOUNTER 2025-08-31 14:48 | Outpatient (CLI) | payer OTHER, SELFPAY ==
[2025-08-31 16:21] LABS: Abs Immature Grans 0.01 10^3/uL (0.0-0.06); HCT 38.0 % (36.0-46.0); HGB 12.8 g/dL (11.2-15.7); Immature Grans % 0.2 %; MCH 30.3 pg (27.0-33.0); MCHC 33.7 % (32.0-36.0); MCV 90 fL (80-95); MPV 10.3 fL (8.0-11.0); Platelet Count 265 10^3/uL (130-400); RBC 4.22 10^6/uL (3.93-5.22); RDW 11.5 % (11.7-14.6); RDW-SD 37.6 fL; WBC 5.96 10^3/uL (4.4-10.8)
[2025-08-31 16:34] LABS: Anion Gap 6.6 mmol/L (3-11); BUN 21 mg/dL (9-23); CO2 29.4 mmol/L (20.0-31.0); Calcium 9.5 mg/dL (8.3-10.6); Chloride 102 mmol/L (98-107); Glucose 72 mg/dL (74-106); Potassium 3.9 mmol/L (3.5-5.1); Sodium 138 mmol/L (136-145)
== END 2025-08-31 14:49 | disposition home or self-care (01) ==
LOC: LOS 14:49
PROVIDERS: PCP Family Medicine
DX: R39.9 Unspecified symptoms and signs involving the genitourinary system (principal); N20.0 Calculus of kidney
CPT/HCPCS: 36415; 80048; 85025; 87086